=== PATIENT | male | born 1995 | race Caucasian/White ===

== ENCOUNTER 2018-03-02 18:44 | Emergency (ER) | payer OTHER ==
[2018-03-02 18:48] VITALS: BMI 29.9
--- NOTE | 2018-03-02 18:52 | PDOC ---
Rapid Medical Evaluation Chief Complaint: Pain Time Seen by Provider: 03/02/18 18:49 Medical Evaluation: Allergies Allergy/AdvReac Type Severity Reaction Status Date / Time No Known Allergies Allergy Verified 03/02/18 18:47 Vital Signs Temp Pulse Resp BP Pulse Ox 98.4 F 91 H 18 134/75 98 03/02/18 18:47 10 18:47 10 18:47 03/02/18 18:47 03/02/18 18:47 03/02/18 18:50 I have performed a brief in-person evaluation of this patient Patient presents with a chief complaint of RLQ abdominal pain Pertinent physical exam findings: NAD, unlabored breathing I have ordered the following: CBC, CMP, type and screen, PT/INR. UA Patient will proceed to the ED for further medical evaluation Discharge Disposition - Diagnosis Abdominal pain - Referrals - Patient Instructions - Post Discharge Activity
[2018-03-02 20:32] LABS: BASO % 0.7 % (0-2.0); EOS % 1.4 % (0-4.5); HEMATOCRIT 47.2 % (35.4-49); HEMOGLOBIN 15.8 GM/dL (11.7-16.9); MCH 28.6 pg (25.7-33.7); MCHC 33.5 g/dl (32.0-35.9); MEAN CELL VOLUME 85.3 fl (80-96); MEAN PLT VOLUME 9.1 fl (7.5-11.1); MONO % 6.6 % (3.8-10.2); NEUT % 62.3 % (42.8-82.8); PLATELET COUNT 252 K/MM3 (134-434); RBC 5.53 M/mm3 (4.00-5.60); RDW 12.8 % (11.9-15.9); WHITE BLOOD COUNT 12.8 K/mm3 (4.0-10.0)
--- NOTE | 2018-03-02 21:17 | PDOC ---
History of Present Illness - General History Source: Patient Exam Limitations: No Limitations - History of Present Illness Initial Comments: 03/02/18 21:23 The patient is a 23 year old male, with no significant past medical history, who presents to the emergency department with, 3 days of right lower quadrant pain. The patient endorses associated constipation and decreased appetite. He notes taking an unknown laxative without, relief prompting his visit to the ER tonight. He denies any recent fevers, chills, headache or dizziness. He denies any recent nausea or vomit. He denies any recent chest pain or shortness of breath. He denies any recent dysuria, frequency, urgency or hematuria. Allergies: NKDA Past surgical history: None reported. Social History: Nonsmoker. Denies EtOH use and recreational drug use. Primary Care Physician: Dr. Trammell <Ladan Rowland - Last Filed: 03/02/18 23:03> <Lakisha Brantley - Last Filed: 03/03/18 01:38> - General Chief Complaint: Pain Stated Complaint: STOMACH PAIN Time Seen by Provider: 03/02/18 18:49 Past History <Ladan Rowland - Last Filed: 03/02/18 23:03> - Past Medical History COPD: No - Suicide/Smoking/Psychosocial Hx Smoking History: Never smoked <Lakisha Brantley - Last Filed: 03/03/18 01:38> - Past Medical History Allergies/Adverse Reactions: Allergies Allergy/AdvReac Type Severity Reaction Status Date / Time No Known Allergies Allergy Verified 03/02/18 18:47 Home Medications: Ambulatory Orders Ibuprofen 800 mg PO TID PRN #30 tablet 03/03/18 Polyethylene Glycol 3350 [Miralax (For Bowel Prep) -] 17 gm PO DAILY #1 bottle 03/03/18 Review of Systems - Review of Systems Able to Perform ROS?: Yes Comments:: 03/02/18 21:23 +GENERAL/CONSTITUTIONAL: Decreased appetite. No fever or chills. No weakness. HEAD, EYES, EARS, NOSE AND THROAT: No change in vision. No ear pain or discharge. No sore throat. CARDIOVASCULAR: No chest pain or shortness of breath. RESPIRATORY: No cough, wheezing, or hemoptysis. +GASTROINTESTINAL: RLQ pain. Constipation. No nausea, vomiting, or diarrhea. GENITOURINARY: No dysuria, frequency, or change in urination. MUSCULOSKELETAL: No joint or muscle swelling or pain. No neck or back pain. SKIN: No rash NEUROLOGIC: No headache, vertigo, loss of consciousness, or change in strength/ sensation. ENDOCRINE: No increased thirst. No abnormal weight change. HEMATOLOGIC/LYMPHATIC: No anemia, easy bleeding, or history of blood clots. ALLERGIC/IMMUNOLOGIC: No hives or skin allergy. All Other Systems: Reviewed and Negative <Ladan Rowland - Last Filed: 03/02/18 23:03> *Physical Exam - Vital Signs Last Vital Signs Temp Pulse Resp BP Pulse Ox 98.4 F 91 H 18 134/75 98 03/02/18 18:47 03/02/18 18:47 03/02/18 18:47 03/02/18 18:47 03/02/18 18:47 - Physical Exam Comments: 03/02/18 23:04 GENERAL: Awake, alert, and fully oriented, in no acute distress HEAD: No signs of trauma EYES: PERRLA, EOMI, sclera anicteric, conjunctiva clear ENT: Auricles normal inspection, hearing grossly normal, nares patent, oropharynx clear without exudates. Moist mucosa NECK: Normal ROM, supple, no lymphadenopathy, JVD, or masses LUNGS: Breath sounds equal, clear to auscultation bilaterally. No wheezes, and no crackles HEART: Regular rate and rhythm, normal S1 and S2, no murmurs, rubs or gallops +ABDOMEN: Minimal tenderness to the right of the periumbilicus. Soft, normoactive bowel sounds. No guarding, no rebound. No masses EXTREMITIES: Normal range of motion, no edema. No clubbing or cyanosis. No cords, erythema, or tenderness NEUROLOGICAL: Cranial nerves II through XII grossly intact. Normal speech, normal gait SKIN: Warm, Dry, normal turgor, no rashes or lesions noted. <Ladan Rowland - Last Filed: 03/02/18 23:03> - Vital Signs Last Vital Signs Temp Pulse Resp BP Pulse Ox 98.4 F 91 H 18 134/75 98 03/02/18 18:47 03/02/18 18:47 03/02/18 18:47 03/02/18 18:47 03/02/18 18:47 <Lakisha Brantley - Last Filed: 03/03/18 01:38> ED Treatment Course - LABORATORY CBC & Chemistry Diagram: 03/02/18 19:36 03/02/18 19:36 - ADDITIONAL ORDERS Additional order review: Laboratory Results 03/02/18 03/02/18 03/02/18 19:36 19:36 19:36 PT with INR Cancelled INR Cancelled Sodium Cancelled Potassium Cancelled Chloride Cancelled Carbon Dioxide Cancelled Anion Gap Cancelled BUN Cancelled Creatinine Cancelled Creat Clearance w eGFR Cancelled Random Glucose Cancelled Calcium Cancelled Total Bilirubin Cancelled AST Cancelled ALT Cancelled Alkaline Phosphatase Cancelled Total Protein Cancelled Albumin Cancelled Lipase Cancelled Blood Type Cancelled Antibody Screen Cancelled 03/02/18 19:36 RBC 5.53 MCV 85.3 MCHC 33.5 RDW 12.8 MPV 9.1 Neutrophils % 62.3 Lymphocytes % 29.0 Monocytes % 6.6 Eosinophils % 1.4 Basophils % 0.7 <Ladan Rowland - Last Filed: 03/02/18 23:03> - LABORATORY CBC & Chemistry Diagram: 03/02/18 19:36 03/02/18 22:32 - ADDITIONAL ORDERS Additional order review: Laboratory Results 03/02/18 03/02/18 03/02/18 19:36 19:36 19:36 PT with INR Cancelled INR Cancelled Sodium Cancelled Potassium Cancelled Chloride Cancelled Carbon Dioxide Cancelled Anion Gap Cancelled BUN Cancelled Creatinine Cancelled Creat Clearance w eGFR Cancelled Random Glucose Cancelled Calcium Cancelled Total Bilirubin Cancelled AST Cancelled ALT Cancelled Alkaline Phosphatase Cancelled Total Protein Cancelled Albumin Cancelled Lipase Cancelled Blood Type Cancelled Antibody Screen Cancelled 03/02/18 19:36 RBC 5.53 MCV 85.3 MCHC 33.5 RDW 12.8 MPV 9.1 Neutrophils % 62.3 Lymphocytes % 29.0 Monocytes % 6.6 Eosinophils % 1.4 Basophils % 0.7 - RADIOLOGY Radiology Studies Ordered: Category Date Time Status ABDOMEN & PELVIS CT W/O CONTR [CT] Stat CT Scan 03/02/18 21:15 Ordered <Lakisha Brantley - Last Filed: 03/03/18 01:38> Medical Decision Making - Medical Decision Making 03/03/18 01:30 Pt presents to the ED complaining of abdominal pain that started 3 days ago, along with constipation. + diffuse R sided tenderness. Ct abdomen pelvis is negative for appendicitis but positive for epiploic appendigitis. Will discharge home with instructions to follow up with his PMD. <Lakisha Brantley - Last Filed: 03/03/18 01:38> *DC/Admit/Observation/Transfer - Attestations Scribe Attestion: 03/02/18 21:25 Documentation prepared by Ladan Rowland, acting as chief medical director for Lakisha Brantley MD. <Ladan Rowland - Last Filed: 03/02/18 23:03> - Discharge Dispostion Decision to Admit order: No <Lakisha Brantley - Last Filed: 03/03/18 01:38> Diagnosis at time of Disposition: Epiploic appendagitis - Discharge Dispostion Disposition: HOME Condition at time of disposition: Good - Prescriptions Prescriptions: Ibuprofen 800 mg PO TID PRN #30 tablet PRN Reason: Pain Polyethylene Glycol 3350 [Miralax (For Bowel Prep) -] 17 gm PO DAILY #1 bottle - Referrals Referrals: Diego Trammell MD [Primary Care Provider] - - Patient Instructions Printed Discharge Instructions: DI for Abdominal Pain-Adult Additional Instructions: return to the ED for worsening pain, pain with fever, other new or worsening symptoms. Return for severe nausea and vomiting, unable to keep fluids down. - Post Discharge Activity Forms/Work/School Notes: Parent(s) Back to Work Note
[2018-03-02 21:48] LABS: URINE APPEARANCE CLEAR; URINE BILIRUBIN NEGATIVE (<2.0 mg/dL); URINE COLOR YELLOW; URINE GLUCOSE (UA) NEGATIVE (NEGATIVE); URINE KETONE TRACE (NEGATIVE); URINE LEUK ESTERASE NEGATIVE (NEGATIVE); URINE NITRITE NEGATIVE (NEGATIVE); URINE PROTEIN NEGATIVE (NEGATIVE); URINE UROBILINOGEN NEGATIVE mg/dL (0.2-1.0)
[2018-03-02 23:20] LABS: ALBUMIN 4.2 g/dl (3.4-5.0); ALK PHOS 77 U/L (45-117); ANION GAP 7 MMOL/L (8-16); BILIRUBIN,TOTAL 0.9 mg/dL (0.2-1); BLOOD UREA NITROGEN 13 mg/dL (7-18); CALCIUM 9.2 mg/dL (8.5-10.1); CHLORIDE 98 mmol/L (98-107); CO2 31 mmol/L (21-32); GLUCOSE,RANDOM 76 mg/dL (74-106); LIPASE 74 U/L (73-393); SGOT/AST 19 U/L (15-37); SGPT/ALT 47 U/L (13-61); SODIUM 136 mmol/L (136-145)
[2018-03-03 02:08] VITALS: BP 126/71; PULSE 82; TEMP 98.2
== END 2018-03-03 02:08 | disposition home or self-care (01) ==
LOC: JER 18:44
DX: K63.89 Other specified diseases of intestine (principal)
CPT/HCPCS: 36415; 74176-TC; 80053; 81003; 83690; 85025; 87086; 99282-25